=== PATIENT | male | born 2000 | race Two or more races ===

== ENCOUNTER 2023-10-13 20:00 | Emergency (ER) | payer OTHER ==
[~2023-10-13] VITALS: Ht 170.2 cm; Wt 72.6 kg
== END 2023-10-13 22:45 | disposition home or self-care (01) ==
LOC: ER 20:00
DX: S50.12XA Contusion of left forearm, initial encounter (principal); W21.4XXA Striking against diving board, initial encounter; Y93.89 Activity, other specified; Y92.832 Beach as the place of occurrence of the external cause

== ENCOUNTER 2025-01-10 13:01 | Emergency (ER) | payer OTHER ==
[~2025-01-10] VITALS: Ht 170.2 cm; Wt 68.0 kg
[2025-01-10] MEDS ORDERED: POVIDONE-IODINE 118 ML BOTT TOP ONE (13:11)
[2025-01-10] MEDS ORDERED: HYDROGEN PEROXIDE 473 ML BOTTLE TOP ONE (13:11)
[2025-01-10] MEDS ORDERED: LIDOCAINE HCL 1% 10ML VIAL ONE (15:25)
[2025-01-10] MEDS ORDERED: LIDOCAINE HCL 1% 10ML VIAL PERCUT ONE (15:30)
== END 2025-01-10 19:50 | disposition home or self-care (01) ==
LOC: ER 15:06
DX: S01.81XA Laceration without foreign body of other part of head, initial encounter (principal); X58.XXXA Exposure to other specified factors, initial encounter; Y93.18 Activity, surfing, windsurfing and boogie boarding; Y92.832 Beach as the place of occurrence of the external cause; Y99.9 Unspecified external cause status

== ENCOUNTER 2025-01-16 07:12 | Emergency (ER) | payer OTHER ==
[~2025-01-16] VITALS: Ht 170.2 cm; Wt 68.0 kg
== END 2025-01-16 10:07 | disposition home or self-care (01) ==
LOC: ER 07:12
DX: Z48.02 Encounter for removal of sutures (principal)